=== PATIENT | female | born 1935 | race Caucasian/White ===

== ENCOUNTER 2018-04-16 15:51 | Inpatient (IN) | payer OTHER, MEDICARE ==
--- NOTE | 2018-04-16 16:16 | EDPHY ---
H & P Time Seen by Provider: 04/16/18 16:15 HPI/ROS: CHIEF COMPLAINT: Abnormal labs, high creatinine HISTORY OF PRESENT ILLNESS: Patient is scheduled to have port placement tomorrow morning by Dr. Tevin Alfredo for dialysis. Dr. Navin Heredia has been following her creatinine and was drawn in [place] today, and was told to come in because her creatinine is rising. Symptoms include nausea with vomiting yesterday, food not tasting good, increasing fatigue, having lost 15 lb in the last 6 weeks and decreased urination. Patient does not have palpitations or syncope. The no dysuria hematuria or fever. REVIEW OF SYSTEMS: Eye: no change in vision ENT: no sore throat Cardiac: no chest pain or syncope Pulmonary: no cough or SOB Abdomen: No diarrhea or abdominal pain Musculoskeletal: Triage note says back pain, the patient says it is minimal and ongoing, not acute Skin: no rash Neuro: no headache Constitutional: no fever : HPI A comprehensive 10 point review of systems is otherwise negative aside from elements mentioned in the history of present illness. PAST MEDICAL HISTORY: Includes hypertension, hypothyroid, GERD, hyperlipidemia , macular degeneration, chronic kidney disease, coronary disease with 2 stents. Social history: Currently nonsmoker, moved to [place] from [place] 2 months ago General Appearance: Alert and conversant, cooperative. Eyes: No scleral icterus. ENT, Mouth: Normal mucous membranes. Respiratory: Normal respiratory effort, breath sounds equal, lungs are clear to auscultation. No rales, saturation 93%. Cardiovascular: Regular rate and rhythm. Gastrointestinal: Abdomen is soft and non tender. Neurological: Alert, face symmetric, normal motor and sensory in extremities. Skin: Warm and dry, no rashes. Musculoskeletal: No peripheral edema. Psychiatric: Not agitated. Emergency Department course/MDM: Recheck labs to include potassium and creatinine. Admission to hospitalist service. She has a port scheduled by Dr. Alfredo tomorrow at 7:00 a.m. For dialysis. Her composite engineer recommends and requests admission hospitalist service, she will see her tonight. Smoking Status: Former smoker Constitutional: Initial Vital Signs Temperature (C) 36.7 C 04/16/18 16:04 Heart Rate 80 04/16/18 16:04 Respiratory Rate 16 04/16/18 16:04 Blood Pressure 149/60 H 04/16/18 16:04 O2 Sat (%) 93 04/16/18 16:04 O2 Delivery Mode Room Air Allergies/Adverse Reactions: sulfamethoxazole [From Bactrim] Allergy (Verified 04/15/18 14:38) trimethoprim [From Bactrim] Allergy (Verified 04/15/18 14:38) Home Medications: Medication Instructions Recorded Aspirin [Aspirin 325 mg (*)] 325 mg PO HS 04/16/18 C/E/Zn/Cu/OM3/DHA/EPA/LUT/ZEAX 1 each PO BID 04/16/18 [Preservision Areds 2 Softgel] Carvedilol [Coreg (*)] 25 mg PO BIDMEAL 04/16/18 Enalapril Maleate [Vasotec 20 MG 20 mg PO DAILY 04/16/18 (*)] Furosemide [Lasix 40 MG (*)] 40 mg PO DAILY 04/16/18 Levothyroxine [Synthroid 88 mcg 88 mcg PO DAILY06 04/16/18 (*)] Multivitamins [Multivitamin (*)] 1 each PO DAILY 04/16/18 Ranitidine HCl [Zantac] 300 mg PO HS 04/16/18 Simvastatin [Zocor] 20 mg PO HS 04/16/18 Sodium Bicarbonate [Na Bicarb] 650 mg PO DAILY 04/16/18 amLODIPine BESYLATE [Norvasc 5 mg 5 mg PO DAILY 04/16/18 (*)] Medical Decision Making Consult/Admit Bed Type: [place] [id number] admit hospitalistAlejandro [facility] Laboratory Results: Laboratory Results 04/16/18 16:45 04/16/18 16:45 04/16/18 04/16/18 16:45 16:45 WBC 4.49 10^3/uL 10^3/uL (3.80-9.50) RBC 2.40 10^6/uL L 10^6/uL (4.18-5.33) Hgb 7.6 g/dL L g/dL (12.6-16.3) Hct 23.0 % L % (38.0-47.0) MCV 95.8 fL fL (81.5-99.8) MCH 31.7 pg pg (27.9-34.1) MCHC 33.0 g/dL g/dL (32.4-36.7) RDW 14.6 % % (11.5-15.2) Plt Count 178 10^3/uL 10^3/uL (150-400) MPV 9.6 fL fL (8.7-11.7) Neut % (Auto) 74.5 % H % (39.3-74.2) Lymph % (Auto) 12.0 % L % (15.0-45.0) [place] % (Auto) 9.8 % % (4.5-13.0) Eos % (Auto) 2.9 % % (0.6-7.6) Baso % (Auto) 0.4 % % (0.3-1.7) Nucleat RBC Rel Count 0.0 % % (0.0-0.2) Absolute Neuts (auto) 3.35 10^3/uL 10^3/uL (1.70-6.50) Absolute Lymphs (auto) 0.54 10^3/uL L 10^3/uL (1.00-3.00) Absolute Monos (auto) 0.44 10^3/uL 10^3/uL (0.30-0.80) Absolute Eos (auto) 0.13 10^3/uL 10^3/uL (0.03-0.40) Absolute Basos (auto) 0.02 10^3/uL 10^3/uL (0.02-0.10) Absolute Nucleated RBC 0.00 10^3/uL 10^3/uL (0-0.01) Immature Gran % 0.4 % % (0.0-1.1) Immature Gran # 0.02 10^3/uL 10^3/uL (0.00-0.10) RBC/WBC/PLT Morphology TNP Platelet Estimate TNP Sodium 135 mEq/L mEq/L (135-145) Potassium 4.3 mEq/L mEq/L (3.5-5.2) Chloride 105 mEq/L mEq/L (97-110) Carbon Dioxide 15 mEq/l L mEq/l (22-31) Anion Gap 15 mEq/L H mEq/L (6-14) BUN 103 mg/dL H* mg/dL (7-23) Creatinine 6.1 mg/dL H mg/dL (0.6-1.0) Estimated GFR 7 Glucose 84 mg/dL mg/dL (70-100) Calcium 9.1 mg/dL mg/dL (8.5-10.4) Medications Given: Discontinued Medications Cefazolin Sodium/Dextrose (Ancef) 100 mls @ 200 mls/hr IV ONCALL ONE PRN Reason: Protocol Stop: 04/16/18 19:23 Last Admin: 04/16/18 19:26 Dose: 100 mls Departure - Departure Disposition: [facility] Acute Clinical Impression: Renal failure Qualifiers: Renal failure chronicity: acute on chronic Acute renal failure type: unspecified Chronic kidney disease stage: unspecified stage Qualified Code(s): N17.9 - Acute kidney failure, unspecified Condition: Good
[2018-04-16 17:12] LABS: PLATELET COUNT 178 10^3/uL (150-400)
[2018-04-16] MEDS ORDERED: ONDANSETRON DISINTEGRATING 4 MG TAB PO PRN (18:06)
[2018-04-16] MEDS ORDERED: ACETAMINOPHEN 325 MG TAB PO PRN (18:06)
[2018-04-16] MEDS ORDERED: ONDANSETRON 4 MG/2 ML VIAL IVP PRN (18:06)
--- NOTE | 2018-04-16 18:14 | PDGENHP ---
History and Physical - Chief Complaint Increased creatinine - History of Present Illness 82 y/o female with history of polycystic kidney disease/CKD presents in renal failure with elevated creatinine levels. She has been stable for years regarding her kidneys. She recently moved from [place] to [place] and followed up with Dr. Alfredo on 04/06/18 to discuss AV fistula creation seeing how her symptoms have acutely changed. Within the last 6 weeks, she has lost 15 lbs, doesn't have an appetite, increase in fatigue and decreased urination. She denies chest pains, dysuria, nausea, constipation. Dr. Navin Heredia has been following her creatinine and instructed the pt to come to the emergency room today d/t rising creatinine. Dr. Alfredo will place a port tomorrow morning for possible dialysis. Past Medical/Surgical History 1. Autosomal dominant polycystic kidney disease 2. CAD s/p 2x stent 3. CKD 4. COPD 5. Cystic disease of the liver 6. Hyperlipidemia 7. Hypertension 8. Hypothyroidism 9. Iron deficient anemia 10. Diabetes II 11. Bladder surgery 12. Hysterectomy 13. Cataracts Social 1. Moved from [place] to [place] 2 months ago 2. Lives in assisted living. 3. Denies tobacco or illicit drug use. Drinks less than 1 alcohol drink per month. Vital Signs 149/60 HR 80 Resp 16 36.7c 93% RA History Information - Allergies/Home Medication List Allergies/Adverse Reactions: sulfamethoxazole [From Bactrim] Allergy (Verified 04/15/18 14:38) trimethoprim [From Bactrim] Allergy (Verified 04/15/18 14:38) Home Medications: Aspirin [Aspirin 325 mg (*)] 325 mg PO HS 04/16/18 [Last Taken 04/15/18] C/E/Zn/Cu/OM3/DHA/EPA/LUT/ZEAX [Preservision Areds 2 Softgel] 1 each PO BID [Last Taken 04/16/18] Carvedilol [Coreg (*)] 25 mg PO BIDMEAL 04/16/18 [Last Taken 04/16/18] Enalapril Maleate [Vasotec 20 MG (*)] 20 mg PO DAILY 04/16/18 [Last Taken ] Furosemide [Lasix 40 MG (*)] 40 mg PO DAILY 04/16/18 [Last Taken 04/16/18] Levothyroxine [Synthroid 88 mcg (*)] 88 mcg PO DAILY06 04/16/18 [Last Taken ] Multivitamins [Multivitamin (*)] 1 each PO DAILY 04/16/18 [Last Taken 04/16/18] Ranitidine HCl [Zantac] 300 mg PO HS 04/16/18 [Last Taken 04/15/18] Simvastatin [Zocor] 20 mg PO HS 04/16/18 [Last Taken 04/15/18] Sodium Bicarbonate [Na Bicarb] 650 mg PO DAILY 04/16/18 [Last Taken 04/16/18] amLODIPine BESYLATE [Norvasc 5 mg (*)] 5 mg PO DAILY 04/16/18 [Last Taken ] I have personally reviewed and updated: family history, medical history, social history, surgical history Past Medical History: See HPI list - Surgical History Additional surgical history: See HPI list - Family History Additional family history: Brother and sister with kidney disease - Social History Smoking Status: Former smoker Alcohol Use: Rarely Drug Use: None Review of Systems Review of Systems: ROS: 10pt was reviewed & negative except for what was stated in HPI & below Constitutional: Reports: weakness, weight loss, other (Fatigue) EENMT: Reports: no symptoms Cardiac: Reports: no symptoms Respiratory: Reports: shortness of breath Gastrointestinal: Reports: vomitting, nausea Genitourinary: Reports: other (decreased urination) Muscolosketal: Reports: back pain (More so left side) Skin: Reports: no symptoms Neurological: Reports: no symptoms Hematologic/Lymphatic: Reports: no symptoms Immunologic/Allergy: Reports: other (See allergy list) Physical Exam Physical Exam: Lab data and imaging reviewed Temp Pulse Resp BP Pulse Ox 36.7 C 80 16 149/60 H 93 04/16/18 16:04 04/16/18 16:04 04/16/18 16:04 04/16/18 16:04 04/16/18 16:04 Constitutional: no apparent distress, appears nourished, not in pain Eyes: PERRL, anicteric sclera, EOMI Ears, Nose, Mouth, Throat: moist mucous membranes, hearing normal, ears appear normal, no oral mucosal ulcers Cardiovascular: regular rate and rhythym, no murmur, rub, or gallop, No edema Peripheral Pulses: 2+: dorsalis-pedis (R) (Radial 2+), dorsalis-pedis (L) ( Radial 2+) Respiratory: no respiratory distress, no rales or rhonchi, clear to auscultation Gastrointestinal: normoactive bowel sounds, soft, non-tender abdomen, no palpable masses Genitourinary: no bladder fullness, no bladder tenderness, other (No CVA tenderness) Skin: warm, normal color, no rashes or abrasions, no fluctuance, no induration, No mottled Musculoskeletal: full muscle strength, no muscle tenderness, normal joint ROM, no joint effusions Neurologic: AAOx3, sensation intact bilaterally, CN II-XII Intact Psychiatric: interacting appropriately, not anxious, not encephalopathic, thought process linear Lymph, Heme, Immunologic: no cervical LAD, no supraclavicular LAD Lab Data & Imaging Review 04/16/18 16:45 04/16/18 16:45 WBC 4.49 10^3/uL (3.80-9.50) 04/16/18 16:45 RBC 2.40 10^6/uL (4.18-5.33) L 04/16/18 16:45 Hgb 7.6 g/dL (12.6-16.3) L 04/16/18 16:45 Hct 23.0 % (38.0-47.0) L 04/16/18 16:45 MCV 95.8 fL (81.5-99.8) 04/16/18 16:45 MCH 31.7 pg (27.9-34.1) 04/16/18 16:45 MCHC 33.0 g/dL (32.4-36.7) 04/16/18 16:45 RDW 14.6 % (11.5-15.2) 04/16/18 16:45 Plt Count 178 10^3/uL (150-400) 04/16/18 16:45 MPV 9.6 fL (8.7-11.7) 04/16/18 16:45 Neut % (Auto) 74.5 % (39.3-74.2) H 04/16/18 16:45 Lymph % (Auto) 12.0 % (15.0-45.0) L 04/16/18 16:45 [place] % (Auto) 9.8 % (4.5-13.0) 04/16/18 16:45 Eos % (Auto) 2.9 % (0.6-7.6) 04/16/18 16:45 Baso % (Auto) 0.4 % (0.3-1.7) 04/16/18 16:45 Nucleat RBC Rel Count 0.0 % (0.0-0.2) 04/16/18 16:45 Absolute Neuts (auto) 3.35 10^3/uL (1.70-6.50) 04/16/18 16:45 Absolute Lymphs (auto) 0.54 10^3/uL (1.00-3.00) L 04/16/18 16:45 Absolute Monos (auto) 0.44 10^3/uL (0.30-0.80) 04/16/18 16:45 Absolute Eos (auto) 0.13 10^3/uL (0.03-0.40) 04/16/18 16:45 Absolute Basos (auto) 0.02 10^3/uL (0.02-0.10) 04/16/18 16:45 Absolute Nucleated RBC 0.00 10^3/uL (0-0.01) 04/16/18 16:45 Immature Gran % 0.4 % (0.0-1.1) 04/16/18 16:45 Immature Gran # 0.02 10^3/uL (0.00-0.10) 04/16/18 16:45 RBC/WBC/PLT Morphology TNP 04/16/18 16:45 Platelet Estimate TNP 04/16/18 16:45 Sodium 135 mEq/L (135-145) 04/16/18 16:45 Potassium 4.3 mEq/L (3.5-5.2) 04/16/18 16:45 Chloride 105 mEq/L (97-110) 04/16/18 16:45 Carbon Dioxide 15 mEq/l (22-31) L 04/16/18 16:45 Anion Gap 15 mEq/L (6-14) H 04/16/18 16:45 BUN 103 mg/dL (7-23) H* 04/16/18 16:45 Creatinine 6.1 mg/dL (0.6-1.0) H 04/16/18 16:45 Estimated GFR 7 04/16/18 16:45 Glucose 84 mg/dL (70-100) 04/16/18 16:45 Calcium 9.1 mg/dL (8.5-10.4) 04/16/18 16:45 Assessment & Plan Plan: 1. Renal failure -Avoid nephrotoxic medications -Nephrology consulted and aware -Surgery consulted and aware: Dr Alfredo to perform port placement tomorrow -Possible HD tomorrow and needed to be repeated at least 3 days in a row before outpatient placement per Dr. Frias -Cont tele monitoring -CBC/CMP tomorrow 2. Hypertension: stable -May continue amlodipine and carvedilol. Held MARK inhibitors and diuretics d/t renal failure. 3. Hypothyroid: may continue levothyroxine 4. GERD: may continue zantac 5. Metabolic acidosis secondary to renal failure -HD -Continue sodium bicarb for now Diet: Renal for now, NPO at midnight tonight VTE ppx: SCDs Code: Full Dispo: Admit to inpatient
[2018-04-16] MEDS ORDERED: ceFAZolin 2 GM/DEXTROSE 100 ML IV ONE (18:54)
--- NOTE | 2018-04-16 19:55 | PDCONSULT ---
Quarry Worker Note: Renal Consult Note CC: Nausea History of Present Illness: The patient is an 82 y/o F with a known h/o PCKD who recently moved to [place] this past fall with Stage IV/V CKD. She reports being stable for several years and was adamantly refusing dialysis until she began to feel unwell in late January and early February. She moved to [place] to be closer to her daughter and was having intermittent abdominal pain, N/V, and fatigue that she thought may be her gallbladder, however had full work-up with [facility] and likely has been uremic. She had scheduled an AVF placement as an outpatient with Dr. Alfredo tomorrow, however has been feeling so poorly over the last week, that she had requested tunneled catheter placement to start sooner. She admits to ASHLEIGH LE edema, poor po intake but no chest pain. Her daughter thinks she is having some confusion. Her goal is to get well enough to make it to her grandchild's wedding in the [place] in June. Today, she received lab results with significant worsening of her Cr and BUN >100 and agreed to come to the ED for admission to initiate dialysis. In addition, she has been undergoing chronic iron/darbe infusions for anemia for the past year or more. Past Medical/Surgical History 1. Autosomal dominant polycystic kidney disease 2. CAD s/p 2x stent 3. CKD 4. COPD 5. Cystic disease of the liver 6. Hyperlipidemia 7. Hypertension 8. Hypothyroidism 9. Iron deficient anemia 10. Diabetes II 11. Bladder surgery 12. Hysterectomy 13. Cataracts Social 1. Moved from [place] to [place] 2 months ago 2. Lives in assisted living. 3. Denies tobacco or illicit drug use. Drinks less than 1 alcohol drink per month. 4. Former smoker. Allergies/Home Medication List Allergies/Adverse Reactions: sulfamethoxazole [From Bactrim] Allergy (Verified 04/15/18 14:38) trimethoprim [From Bactrim] Allergy (Verified 04/15/18 14:38) Home Medications: Amlodipine Besylate 04/16/18 [Last Taken Unknown] Aspirin 325 mg (*) 04/16/18 [Last Taken Unknown] Carvedilol 04/16/18 [Last Taken Unknown] Enalapril Maleate 04/16/18 [Last Taken Unknown] Lasix 04/16/18 [Last Taken Unknown] Levothyroxine 04/16/18 [Last Taken Unknown] Multivitamin 04/16/18 [Last Taken Unknown] Omeprazole 04/16/18 [Last Taken Unknown] Ranitidine HCl 04/16/18 [Last Taken Unknown] Simvastatin 04/16/18 [Last Taken Unknown] Review of Systems Review of Systems: Negative except as per HPI. Physical Exam Temp Pulse Resp BP Pulse Ox 36.6 C 86 26 H 139/77 H 95 04/16/18 19:43 04/16/18 19:43 04/16/18 19:43 04/16/18 19:43 04/16/18 19:43 Physical Exam: GEN: A+Ox3, no distress HEENT: MMM, no thyromegaly CV: RRR, flow murmur LUNGS: CTA b/l, no wheezing ABD: Soft, NT, ND, +BS EXT: Trace edema NEURO: Non-focal Labs: WBC 4.49 10^3/uL (3.80-9.50) 04/16/18 16:45 RBC 2.40 10^6/uL (4.18-5.33) L 04/16/18 16:45 Hgb 7.6 g/dL (12.6-16.3) L 04/16/18 16:45 Hct 23.0 % (38.0-47.0) L 04/16/18 16:45 MCV 95.8 fL (81.5-99.8) 04/16/18 16:45 MCH 31.7 pg (27.9-34.1) 04/16/18 16:45 MCHC 33.0 g/dL (32.4-36.7) 04/16/18 16:45 RDW 14.6 % (11.5-15.2) 04/16/18 16:45 Plt Count 178 10^3/uL (150-400) 04/16/18 16:45 MPV 9.6 fL (8.7-11.7) 04/16/18 16:45 Neut % (Auto) 74.5 % (39.3-74.2) H 04/16/18 16:45 Lymph % (Auto) 12.0 % (15.0-45.0) L 04/16/18 16:45 [place] % (Auto) 9.8 % (4.5-13.0) 04/16/18 16:45 Eos % (Auto) 2.9 % (0.6-7.6) 04/16/18 16:45 Baso % (Auto) 0.4 % (0.3-1.7) 04/16/18 16:45 Nucleat RBC Rel Count 0.0 % (0.0-0.2) 04/16/18 16:45 Absolute Neuts (auto) 3.35 10^3/uL (1.70-6.50) 04/16/18 16:45 Absolute Lymphs (auto) 0.54 10^3/uL (1.00-3.00) L 04/16/18 16:45 Absolute Monos (auto) 0.44 10^3/uL (0.30-0.80) 04/16/18 16:45 Absolute Eos (auto) 0.13 10^3/uL (0.03-0.40) 04/16/18 16:45 Absolute Basos (auto) 0.02 10^3/uL (0.02-0.10) 04/16/18 16:45 Absolute Nucleated RBC 0.00 10^3/uL (0-0.01) 04/16/18 16:45 Immature Gran % 0.4 % (0.0-1.1) 04/16/18 16:45 Immature Gran # 0.02 10^3/uL (0.00-0.10) 04/16/18 16:45 RBC/WBC/PLT Morphology TNP 04/16/18 16:45 Platelet Estimate TNP 04/16/18 16:45 Sodium 135 mEq/L (135-145) 04/16/18 16:45 Potassium 4.3 mEq/L (3.5-5.2) 04/16/18 16:45 Chloride 105 mEq/L (97-110) 04/16/18 16:45 Carbon Dioxide 15 mEq/l (22-31) L 04/16/18 16:45 Anion Gap 15 mEq/L (6-14) H 04/16/18 16:45 BUN 103 mg/dL (7-23) H* 04/16/18 16:45 Creatinine 6.1 mg/dL (0.6-1.0) H 04/16/18 16:45 Estimated GFR 7 04/16/18 16:45 Glucose 84 mg/dL (70-100) 04/16/18 16:45 Calcium 9.1 mg/dL (8.5-10.4) 04/16/18 16:45 Assessment/Plan: The patient is an 82 y/o F with a known h/o CKD Stage V 2/2 to PCKD as well as DM, HTN who presents with symptoms of uremia ready to initiate dialysis. ESRD -obtain TDC and AVF per Dr. Alfredo tomorrow -will do HD x 3 days in a row prior to outpatient placement -will use mannitol to prevent ALESHA HTN/vol -BP's at goal -continue home meds -will UF with HD Acidosis -on sodium bicarb, continue for now -will modulate with HD BMD -supposed to be taking TUMS binder with meals -may start sevelamer tid -renal diet Anemia -continue EPO with HD -has had recent GI work-up -transfuse for <7g/dL Consult appreciated, will continue to follow. Please contact if ?'s. #. Navin Frias, [facility]
--- NOTE | 2018-04-16 20:08 | HOSPPROG ---
Hospitalist Progress Note Assessment/Plan: #Acute on chronic HD -Surgery to see in a.m. -HD tomorrow, will need to be repeated -nephrology #Anemia -transfuse PRN #HTN #Uremia #Hx of CAD Pt seen and examined. Agree with ROLL REPAIRER's H&P per her note. Pt will have port placed tomorrow with dialysis following. No e/o of hyperkalemia Subjective: feels tired. no cp or sob. no n/v Objective: Vital Signs Temp Pulse Resp BP Pulse Ox 36.6 C 86 26 H 139/77 H 95 04/16/18 19:43 04/16/18 19:43 04/16/18 19:43 04/16/18 19:43 04/16/18 19:43 04/15/18 04/16/18 04/17/18 05:59 05:59 05:59 Output Total 80 Balance -80 - Physical Exam Constitutional: no apparent distress Eyes: PERRL Ears, Nose, Mouth, Throat: moist mucous membranes, hearing normal Cardiovascular: edema (trace) Gastrointestinal: normoactive bowel sounds Skin: warm Neurologic: AAOx3 Psychiatric: interacting appropriately, not anxious, not encephalopathic ICD10 Worksheet Patient Problems: Problems Problem Status Onset Renal failure Acute
[2018-04-16] MEDS ORDERED: Ranitidine Hcl [Zantac] 300 MG PO SCH (21:00)
[2018-04-16] MEDS: RANITIDINE HCL 150 MG/10 ML UDCUP PO SCH (22:03)
[2018-04-17 04:48] LABS: PLATELET COUNT 153 10^3/uL (150-400)
[2018-04-17] MEDS: LEVOTHYROXINE 88 MCG TAB PO SCH (05:22)
--- NOTE | 2018-04-17 07:12 | POSTANESTH ---
Post Anesthetic Evaluation Cardiovascular Status: Normal, Stable Respiratory Status: Normal, Stable Level of Consciousness/Mental Status: Can Participate in Eval, Mildly Sleepy, Arousable Pain Control: Adequate, Prn Tx Ordered Nausea/Vomiting Control: Adequate, Prn Tx Ordered Complications Possibly Related to Anesthesia: None Noted
[2018-04-17] MEDS ORDERED: CARVEDILOL 25 MG TAB PO SCH (08:00)
[2018-04-17] MEDS ORDERED: THROMBIN (BOVINE) 5,000 UNIT VIAL TP ONE (08:01)
[2018-04-17] MEDS ORDERED: PROTAMINE SULFATE 50 MG/5 ML VIAL IVP ONE (08:01)
[2018-04-17] MEDS ORDERED: BUPIVACAINE 0.5% 30 ML SDV ONE ×2 (08:02→08:04)
[2018-04-17] MEDS ORDERED: HEPARIN 50,000 UNIT/10 ML VIAL ONE ×2 (08:02→22:30)
[2018-04-17] MEDS ORDERED: THROMBIN (BOVINE) 20,000 UNIT SPRAY TP ONE (08:02)
[2018-04-17] MEDS ORDERED: NS 1,000 ML IV ONE (08:11)
[2018-04-17] MEDS ORDERED: ceFAZolin 2 GM/DEXTROSE 100 ML IV ONE (08:30)
[2018-04-17] MEDS ORDERED: DEXAMETHASONE 4 MG/ML VIAL ONE (08:37)
[2018-04-17] MEDS ORDERED: LIDOCAINE 2% 5 ML SDV ONE (08:37)
[2018-04-17] MEDS ORDERED: fentaNYL 100 MCG/2 ML INJ ONE (08:37)
[2018-04-17] MEDS ORDERED: PROPOFOL 200 MG/20 ML VIAL ONE (08:37)
[2018-04-17] MEDS ORDERED: CISATRACURIUM BESYLATE 20 MG/10 ML VIAL IV ONE (08:38)
--- NOTE | 2018-04-17 10:05 | SOAPPROG ---
SOAP Progress Note Assessment/Plan: Assessment: 82-YEAR-OLD FEMALE WITH INCREASING AZOTEMIA BUT POTASSIUM IS OKAY SURGICAL RISKS AND OPTIONS FULLY DISCUSSED AND SHE WISHED TO PROCEED HEENT NONICTERIC WITHOUT BRUITS CHEST CLEAR COR REGULAR RHYTHM ABDOMEN SOFT EXTREMITIES FULL PULSES FULL RANGE OF MOTION Plan: IJ PALINDROME CATHETER/LEFT ARM AV FISTULA 04/17/18 10:04 Objective: Vital Signs Temp Pulse Resp BP Pulse Ox 36.6 C 88 16 133/63 H 93 04/17/18 08:19 04/17/18 08:19 04/17/18 08:19 04/17/18 08:19 04/17/18 08:19 Laboratory Results 04/17/18 04:33 04/17/18 04:33 04/16/18 04/17/18 04/18/18 05:59 05:59 05:59 Intake Total 100 Output Total 955 200 Balance -855 -200 ICD10 Worksheet Patient Problems: Problems Problem Status Onset Renal failure Acute
--- NOTE | 2018-04-17 10:16 | PDMN ---
Medical Necessity Medical necessity: [facility] 82 yo w/ hx polycyctic kidney disease/CKD in acute renal failure w/ elevated creat 6.1, metabolic acidosis. Nephrology consulted, Surgery consult for port placement. Start hemodialysis after port placement. Meets [facility] IP criteria for ARF w/ creat>4, metabolic abnormality and acute dialysis needs. Hx as above + CAD s/p stentx2, COPD, cystic disease of liver, HTN, HLD, DM, iron deficient anemia
--- NOTE | 2018-04-17 12:06 | PDANEPAE ---
ANE History of Present Illness 82 yo female with chronic kidney disease with a subacute worsening over the past 3 months, needing dialysis. ANE Past Medical History - Cardiovascular History Hx Hypertension: Yes Hx Arrhythmias: No Hx Chest Pain: No Hx Coronary Artery / Peripheral Vascular Disease: Yes Hx CHF / Valvular Disease: No Hx Palpitations: No Cardiovascular History Comment: stents x 2,12 yrs ago. Hx [place]. 01/20/18 - negative pharmacologic stress test performed in [place] - Pulmonary History Hx COPD: No Hx Asthma/Reactive Airway Disease: No Hx Recent Upper Respiratory Infection: No Hx Oxygen in Use at Home: No Hx Sleep Apnea: No Sleep Apnea Screening Result - Last Documented: Negative Pulmonary History Comment: [facility] TRIGG[facility] ONLY - Neurologic History Hx Cerebrovascular Accident: No Hx Seizures: No Hx Dementia: No - Endocrine History Hx Diabetes: Yes Hypothyroid: No Hyperthyroid: No Obesity: no Endocrine History Comment: TYPE 2 DM - pt denies diabetes - Renal History Hx Renal Disorders: Yes Renal History Comment: CKD - Liver History Hx Hepatic Disorders: Yes Hepatic History Comment: CYSTIC LIVER DISEASE - Neurological & Psychiatric Hx Hx Neurological and Psychiatric Disorders: No - Cancer History Hx Cancer: No - Congenital Disorder History Hx Congenital Disorders: No - GI History GERD: moderate Hx Gastrointestinal Disorders: Yes - Other Health History Other Health History: NONE - Chronic Pain History Chronic Pain: No - Surgical History Prior Surgeries: none in last 5 yrs. cataract surgery. bladder repair 2014 ANE Review of Systems Review of Systems: - Systems Constitutional: Reports: malaise (tired) EENMT: Reports: no symptoms Cardiac: Reports: no symptoms Respiratory: Reports: no symptoms ANE Patient History - Allergies Allergies/Adverse Reactions: sulfamethoxazole [From Bactrim] Allergy (Verified 04/15/18 14:38) trimethoprim [From Bactrim] Allergy (Verified 04/15/18 14:38) - Home Medications Home Medications: Aspirin [Aspirin 325 mg (*)] 325 mg PO HS 04/16/18 [Last Taken 04/15/18] C/E/Zn/Cu/OM3/DHA/EPA/LUT/ZEAX [Preservision Areds 2 Softgel] 1 each PO BID [Last Taken 04/16/18] Carvedilol [Coreg (*)] 25 mg PO BIDMEAL 04/16/18 [Last Taken 04/16/18] Enalapril Maleate [Vasotec 20 MG (*)] 20 mg PO DAILY 04/16/18 [Last Taken ] Furosemide [Lasix 40 MG (*)] 40 mg PO DAILY 04/16/18 [Last Taken 04/16/18] Levothyroxine [Synthroid 88 mcg (*)] 88 mcg PO DAILY06 04/16/18 [Last Taken ] Multivitamins [Multivitamin (*)] 1 each PO DAILY 04/16/18 [Last Taken 04/16/18] Ranitidine HCl [Zantac] 300 mg PO HS 04/16/18 [Last Taken 04/15/18] Simvastatin [Zocor] 20 mg PO HS 04/16/18 [Last Taken 04/15/18] Sodium Bicarbonate [Na Bicarb] 650 mg PO DAILY 04/16/18 [Last Taken 04/16/18] amLODIPine BESYLATE [Norvasc 5 mg (*)] 5 mg PO DAILY 04/16/18 [Last Taken ] - NPO status NPO Since - Liquids (Date): 04/17/18 NPO Since - Liquids (Time): 00:00 NPO Since - Solids (Date): 04/17/18 NPO Since - Solids (Time): 00:00 - Anes Hx Anes Hx: no prior problems - Smoking Hx Smoking Status: Former smoker - Alcohol Use Alcohol Use: Rarely - Family Anes Hx Family Anes Hx: neg - N/A Family Hx Anesthesia Complications: none ANE Labs/Vital Signs - Labs Result Diagrams: 04/17/18 04:33 04/17/18 04:33 - Vital Signs Blood Pressure: 133/63 Heart Rate: 88 Respiratory Rate: 16 O2 Sat (%): 93 Height: 154.94 cm Weight: 63.503 kg ANE Physical Exam - Airway Neck exam: decreased ROM Mallampati Score: Class 3 Mouth exam: normal dental/mouth exam - Pulmonary Pulmonary: clear to auscultation - Cardiovascular Cardiovascular: regular rate and rhythym - ASA Status ASA Status: III ANE Anesthesia Plan Anesthesia Plan: GA w LMA ([place] LMA)
[2018-04-17] MEDS ORDERED: PHENYLEPHRINE HCL 100 MCG/ML SYR ONE (12:40)
[2018-04-17] MEDS ORDERED: BACITRACIN ZINC 0.5 OZ OINTTUBE TP ONE (13:31)
[2018-04-17 13:48] LABS: HEPATITIS B SURFACE ANTIGEN NEGATIVE (NEGATIVE)
[2018-04-17] MEDS ORDERED: ePHEDrine SULFATE 25 MG/5 ML SYR ONE (14:14)
[2018-04-17] MEDS ORDERED: fentaNYL 100 MCG/2 ML INJ IVP PRN (14:43)
[2018-04-17] MEDS ORDERED: PROMETHAZINE HCL 25 MG/ML INJ IVP PRN (14:43)
[2018-04-17] MEDS ORDERED: NALOXONE HCL 0.4 MG/ML INJ IVP PRN (14:43)
[2018-04-17] MEDS ORDERED: ALBUTEROL 3 ML DEYVIAL IH PRN (14:43)
[2018-04-17] MEDS ORDERED: oxyCODONE IR 5 MG TAB PO PRN (14:43)
[2018-04-17] MEDS ORDERED: ONDANSETRON 4 MG/2 ML VIAL ONE (14:45)
--- NOTE | 2018-04-17 14:52 | HOSPPROG ---
Hospitalist Progress Note Assessment/Plan: The patient is a 82-year-old female with PMH CKD who was admitted per the recommendation of her financial reporting advisor to initiate hemodialysis for new onset ESRD. This patient is new to me. Reviewed patient's chart/records for this visit. 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 Starting tonight. Nephrology recs appreciated - discussed w / Dr. Davis. -On bicarb. -Surgery today - for AVF, tunneled cath. -Resume home meds. -Watch for hypoglycemia, hypotension, etc. -Check AM labs. VTE prophylaxis: Hold off on VTE ppx today w/ surgery/HD. Code Status: Full code. Status: inpt for > 2 midnight stay. Disposition: med surg ____ SUBJECTIVE: OBJECTIVE: Physical Exam: General: The patient is a female who is alert and in no acute distress. HEENT: normocephalic, extraocular movements intact, conjunctivae clear. Mucous membranes moist or dry. Neck: trachea midline, no visible masses. Resp: unlabore. Abd: soft and nondistended. Musculoskeletal: Normal muscle tone/bulk. Neuro: cranial nerves II -XII grossly intact. Intact gross motor and sensory function. Psych: appropriate mood and appropriate affect. Skin: No pallor. No petechiae. Heme/lymph: No peripheral edema at bilateral lower legs. Labs/Imaging/Other Tests: Personally reviewed/interpreted. CXR 1 view- Impression: 1. New well-positioned tunneled right IJ dialysis catheter. 2. No pneumothorax or edema. 3. Chronic mild bronchitis. Objective: Vital Signs Temp Pulse Resp BP Pulse Ox 36.6 C 88 16 133/63 H 93 04/17/18 08:19 04/17/18 12:06 04/17/18 12:06 04/17/18 12:06 04/17/18 12:06 Laboratory Results 04/17/18 04:33 04/17/18 04:33 04/16/18 04/17/18 04/18/18 05:59 05:59 05:59 Intake Total 100 Output Total 955 200 Balance -855 -200 - Time Spent With Patient Time Spent with Patient: greater than 35 minutes Time Spent with Patient: Greater than 35 minutes spent on this patients care, greater than 50% of time spent counseling, educating, and coordinating care regarding the above mentioned plan. ICD10 Worksheet Patient Problems: Problems Problem Status Onset Renal failure Acute
[2018-04-17] MEDS ORDERED: HYDROCODONE/APAP 5/325 TAB PO PRN (14:58)
[2018-04-17] MEDS ORDERED: HYDROmorphONE/DILAUDID 1 MG/ML INJ IVP PRN (14:58)
--- NOTE | 2018-04-17 15:00 | POSTOPPROG ---
Post Op Note Date of Operation: 04/17/18 Surgeon: Tevin Alfredo Field Staff Manager: charu anand Anesthesiologist: Dr White Anesthesia: GET(General Endotracheal) Pre-op Diagnosis: need for access for dialysis Post-op Diagnosis: same Indication: see above Procedure: neck cath, left UE AVF Inf/Abcess present in the surg proc area at time of surgery?: No EBL: Minimal
--- NOTE | 2018-04-17 16:32 | ASMTCMCOM ---
CM Note CM Note Notes: Pt is a 82 yo F presenting with Renal Failure. Started on dialysis today. Pt is a , has daughter in the area. CM to follow. Plan: TBD Date Signed: 04/17/2018 04:32 PM Electronically Signed By:GILLIAN King
[2018-04-17] MEDS: SODIUM BICARBONATE 650 MG TAB PO SCH (17:07)
[2018-04-17] MEDS: amLODIPine BESYLATE 5 MG TAB PO SCH (17:07)
--- NOTE | 2018-04-17 17:24 | SOAPPROG ---
SOAP Progress Note Assessment/Plan: Assessment: 82 y/o F with a known h/o PCKD who recently moved to [place] this past fall with Stage IV/V CKD, CAD, COPD, HLD, HTN, DM, and macular degeneration admitted with uremic symptoms for initiation of dialysis. # ESRD- will now be declared ESRD --1st HD session on 04/17 evening 1.5hrs (200BF/300DF) --2nd HD session 04/18 or 04/19 based on scheduling --3rd HD session on 04/20 --Will need to work on outpatient dialysis placement starting on 04/20 (patient was in OR until late on 04/17). Patient hopes to dialyze at [facility] --Start dialysis vitamin --Tunneled HD catheter and LUE AVF placed by Dr. Alfredo on 04/17 # Anemia- --Will check iron studies with AM labs # Hypertension- BP running lower than normal after OR even without meds --Will add hold parameters to home BP meds # Metabolic acidosis-2/2 ESRD --HD on higher bicarb bath # Hyperkalemia- K at goal # CKD-MBD --Check phos with AM labs >30min spent on the care of this patient with >50% of time spent on counseling and coordination of care Discussed with Dr. Jade Subjective: Patient doesn't feel terrible. Surgery went well. Continues to have malaise. Nausea this morning, comes and goes. No metallic taste. Does have itching all over. Sleeping ok. No shortness of breath. Objective: Vital Signs Temp Pulse Resp BP Pulse Ox 36.5 C 77 24 H 137/53 H 98 04/17/18 16:17 04/17/18 16:17 04/17/18 16:17 04/17/18 16:17 04/17/18 16:17 Laboratory Results 04/17/18 04:33 04/17/18 04:33 04/16/18 04/17/18 04/18/18 05:59 05:59 05:59 Intake Total 100 450 Output Total 955 230 Balance -855 220 General- awake, alert, well-appearing, NAD Eyes- anicteric sclera, no conjunctival injection HEENT- MMM, no gross oral lesions Neck- RIJ tunneled dialysis catheter in place Pulm- CTAB, no wheezes or rales, breathing comfortably on RA CV- NRRR, no g/m/r, no LE edema Abd- soft, non-tender, non-distended, +BS Extrem- new LUE AVF with good bruit and thrill Psych- pleasant, answers questions appropriately ICD10 Worksheet Patient Problems: Problems Problem Status Onset Renal failure Acute
[2018-04-17] MEDS: CARVEDILOL 25 MG TAB PO SCH (21:52)
[2018-04-17] MEDS: ATORVASTATIN CALCIUM 10 MG TAB PO SCH (21:52)
[2018-04-17] MEDS: PRESERVISION AREDS2 FORMULA EYE VIT 1 EACH PO SCH (21:52)
[2018-04-17] MEDS: ASPIRIN 325 MG TAB PO SCH (21:53)
[2018-04-17] MEDS: RANITIDINE HCL 150 MG/10 ML UDCUP PO SCH (22:22)
[2018-04-18] MEDS: LEVOTHYROXINE 88 MCG TAB PO SCH (05:19)
[2018-04-18 05:37] LABS: PLATELET COUNT 123 10^3/uL (150-400)
[2018-04-18] MEDS: ENALAPRIL MALEATE 20 MG TAB PO SCH (08:24)
[2018-04-18] MEDS: SODIUM BICARBONATE 650 MG TAB PO SCH (08:24)
[2018-04-18] MEDS: NEPHROVITE FOLIC ACID/VIT B&C 1 TAB PO SCH (08:25)
[2018-04-18] MEDS: CARVEDILOL 25 MG TAB PO SCH ×2 (08:25→18:13)
[2018-04-18] MEDS: PRESERVISION AREDS2 FORMULA EYE VIT 1 EACH PO SCH ×2 (08:26→20:14)
[2018-04-18] MEDS: amLODIPine BESYLATE 5 MG TAB PO SCH (08:26)
[2018-04-18] MEDS ORDERED: MULTIVITAMINS 1 EACH TAB PO SCH (09:00)
--- NOTE | 2018-04-18 10:28 | SOAPPROG ---
SOAP Progress Note Assessment/Plan: Assessment: s/p AVF and neck catheter doing well check for thrill daily F/U dr. ross in 2 weeks Will be on standby S: Feeling well O: Neck cath without signs of infection ecchymosis on anticub fossa left. Good thrill. Incision cdi Sitting on edge of bed, appears comfortable Plan: 04/18/18 10:27 04/18/18 12:13 Objective: Vital Signs Temp Pulse Resp BP Pulse Ox 36.6 C 93 16 138/64 H 90 L 04/18/18 07:41 04/18/18 08:25 04/18/18 07:41 04/18/18 08:26 04/18/18 07:41 Laboratory Results 04/18/18 05:18 04/18/18 05:18 04/17/18 04/18/18 04/19/18 05:59 05:59 05:59 Intake Total 100 1450 Output Total 955 631 Balance -855 819 ICD10 Worksheet Patient Problems: Problems Problem Status Onset Renal failure Acute
--- NOTE | 2018-04-18 11:30 | HOSPPROG ---
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 1. ESRD: New diagnosis. Due to PCKD. Tunneled dialysis line and LUE AV fistula placed by Dr Alfredo 04/17 - s/p 1st round HD 04/17 - due for 2nd session either today or tomorrow per renal - plan for 3rd session 04/20 - CM working on obtaining outpatient chair 2. Anemia: H/H down-trending, likely d/t recent surgery. Chronically more consistent with renal disease, not Fe deficient - type and screen - will discuss transfusion vs EPO with renal 3. Thrombocytopenia: Down slightly. Likely some consumption. Monitor daily. 4. Hypertension: BP ok, continue current meds. 5. Metabolic acidosis: 2/2 renal disease. Improved with HD. Continue bicarb. 6. Hypothyroidism: Continue LT4 replacement 7. HLD: On statin 8. COPD: No exacerbation, not on inhalers at home 9. Cystic liver disease VTE ppx: Diet: renal Code: full Dispo: remain inpatient for HD, close monitoring of labs, ADD 04/20 or 04/21 Subjective: Overall feeling better. Got short fun of HD (1.5hrs) last night. This was her first session. No dizziness, chest pain, nausea, dyspnea. Objective: Vital Signs Temp Pulse Resp BP Pulse Ox 36.6 C 93 16 138/64 H 90 L 04/18/18 07:41 04/18/18 08:25 04/18/18 07:41 04/18/18 08:26 04/18/18 07:41 Laboratory Results 04/18/18 05:18 04/18/18 05:18 04/17/18 04/18/18 04/19/18 05:59 05:59 05:59 Intake Total 100 1450 Output Total 955 631 Balance -855 819 - Physical Exam Constitutional: no apparent distress, appears nourished, not in pain Eyes: PERRL, anicteric sclera, EOMI Ears, Nose, Mouth, Throat: moist mucous membranes, hearing normal, ears appear normal, no oral mucosal ulcers Cardiovascular: regular rate and rhythym, no murmur, rub, or gallop, other (LUE AV fistula site c/d/i, no thrill), No edema Respiratory: no respiratory distress, no rales or rhonchi, clear to auscultation Gastrointestinal: normoactive bowel sounds, soft, non-tender abdomen, no palpable masses Genitourinary: no bladder fullness, no bladder tenderness, no renal bruits Skin: other (R subclavian line c/d/i) Musculoskeletal: full muscle strength, no muscle tenderness, normal joint ROM Neurologic: AAOx3, sensation intact bilaterally Psychiatric: interacting appropriately, not anxious, not encephalopathic, thought process linear ICD10 Worksheet Patient Problems: Problems Problem Status Onset Renal failure Acute
[2018-04-18] MEDS: IPRATROPIUM/ALBUTEROL 3 ML DEYVIAL IH PRN ×2 (13:43→19:49)
[2018-04-18] MEDS: GUAIFENESIN/DM 10 ML UDCUP PO PRN (14:17)
[2018-04-18] MEDS ORDERED: HEPARIN 50,000 UNIT/10 ML VIAL ONE (19:07)
[2018-04-18] MEDS: ATORVASTATIN CALCIUM 10 MG TAB PO SCH (20:13)
[2018-04-18] MEDS: ASPIRIN 325 MG TAB PO SCH (20:13)
[2018-04-18] MEDS: RANITIDINE HCL 150 MG/10 ML UDCUP PO SCH (20:14)
--- NOTE | 2018-04-18 22:27 | SOAPPROG ---
SOAP Progress Note Assessment/Plan: Assessment: 82 y/o F with a known h/o PCKD who recently moved to [place] this past fall with Stage IV/V CKD, CAD, COPD, HLD, HTN, DM, and macular degeneration admitted with uremic symptoms for initiation of dialysis. # ESRD- will now be declared ESRD --1st HD session on 04/17 evening 1.5hrs (200BF/300DF) --2nd HD session 04/18 --3rd HD session on 04/19, will give 1un PRBC with HD on 04/19 --Will need to work on outpatient dialysis placement starting on 04/20 (patient was in OR until late on 04/17). Patient hopes to dialyze at [facility] --dialysis vitamin --Tunneled HD catheter and LUE AVF placed by Dr. Alfredo on 04/17 # Anemia- --iron sat below goal at 17% *Plan for transfusion with HD on 04/19 given Hgb of 6.5 *Will plan to recheck iron sat after transfusion, might need IVF iron as well to make sure iron stores are up before starting Epo # Hypertension- ok on current meds, continue # Metabolic acidosis-2/2 ESRD, improved with initiation of HD and dialysis on higher bicarb bath *D/c'ed sodium bicarb tablets # Hyperkalemia- K at goal # CKD-MBD --Phos 5.6 on 04/18, above goal but just starting HD --CTM for now but will likely need phos binder in the future Subjective: Feeling much better since starting dialysis. Has tolerated first 2 treatments well without issues. Does report some cough and chills today. Objective: Vital Signs Temp Pulse Resp BP Pulse Ox 36.5 C 84 16 142/60 H 93 04/18/18 20:00 04/18/18 20:00 04/18/18 20:00 04/18/18 20:00 04/18/18 20:00 Laboratory Results 04/18/18 05:18 04/18/18 05:18 04/17/18 04/18/18 04/19/18 05:59 05:59 05:59 Intake Total 100 1450 2000 Output Total 955 631 300 Balance -984 506 1335 General- awake, alert, well-appearing, NAD Eyes- anicteric sclera, no conjunctival injection HEENT- MMM, no gross oral lesions Neck- RIJ tunneled dialysis catheter in place Pulm- CTAB, no wheezes or rales, breathing comfortably on RA CV- NRRR, no g/m/r, no LE edema Abd- soft, non-tender, non-distended, +BS Extrem- new LUE AVF with good bruit and thrill Psych- pleasant, answers questions appropriately ICD10 Worksheet Patient Problems: Problems Problem Status Onset Renal failure Acute
[2018-04-19 04:59] LABS: PLATELET COUNT 112 10^3/uL (150-400)
[2018-04-19] MEDS: LEVOTHYROXINE 88 MCG TAB PO SCH (05:49)
[2018-04-19] MEDS: PRESERVISION AREDS2 FORMULA EYE VIT 1 EACH PO SCH ×2 (07:38→19:31)
[2018-04-19] MEDS: NEPHROVITE FOLIC ACID/VIT B&C 1 TAB PO SCH (07:38)
[2018-04-19] MEDS: ENALAPRIL MALEATE 20 MG TAB PO SCH (07:38)
[2018-04-19] MEDS: amLODIPine BESYLATE 5 MG TAB PO SCH (07:38)
[2018-04-19] MEDS: CARVEDILOL 25 MG TAB PO SCH ×2 (07:38→18:05)
[2018-04-19] MEDS: IPRATROPIUM/ALBUTEROL 3 ML DEYVIAL IH PRN (11:36)
[2018-04-19] MEDS ORDERED: HEPARIN 50,000 UNIT/10 ML VIAL ONE (13:47)
--- NOTE | 2018-04-19 15:52 | HOSPPROG ---
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 1. ESRD: New diagnosis. Due to PCKD. Tunneled dialysis line and LUE AV fistula placed by Dr Alfredo 04/17 - s/p 1st round HD 04/17, 2nd round today 04/19 - plan for 3rd session 04/20 - CM working on obtaining outpatient chair 2. Anemia: H/H down-trending, likely d/t recent surgery. Chronically more consistent with renal disease - s/p 1u PRBC with HD today - renal recs rechecking Fe sat after transfusion to determine need for IV iron prior to starting EPO 3. Cough, dyspnea: Not clinically in exacerbation of COPD. - trial nebs, mucinex, tesslon hyun 4. Thrombocytopenia: Stable. Likely some consumption. Monitor daily. 5. Hypertension: BP ok, continue current meds. 6. Metabolic acidosis: 2/2 renal disease. Improved with HD. Renal discontinued bicarb. 7. Hypothyroidism: Continue LT4 replacement 8. HLD: On statin 9. COPD: No exacerbation, not on inhalers at home 10. Cystic liver disease VTE ppx: SCDs with drop in h/h Diet: renal Code: full Dispo: remain inpatient for HD, close monitoring of labs, ADD 04/20 Subjective: Doing well, tolerating HD without issues. Some neck spasm/pain that' s been going on prior to HD. Some cough. Objective: Vital Signs Temp Pulse Resp BP Pulse Ox 36.9 C 92 16 157/58 H 98 04/19/18 12:00 04/19/18 12:00 04/19/18 12:00 04/19/18 12:00 04/19/18 12:00 Laboratory Results 04/19/18 04:08 04/19/18 04:08 04/18/18 04/19/18 04/20/18 05:59 05:59 05:59 Intake Total 1450 2200 Output Total 631 300 475 Balance 819 1900 -475 - Physical Exam Constitutional: no apparent distress, appears nourished, not in pain Eyes: PERRL, anicteric sclera, EOMI Ears, Nose, Mouth, Throat: moist mucous membranes, hearing normal, ears appear normal, no oral mucosal ulcers Cardiovascular: regular rate and rhythym, no murmur, rub, or gallop, No edema Respiratory: no respiratory distress, no rales or rhonchi, clear to auscultation Gastrointestinal: normoactive bowel sounds, soft, non-tender abdomen, no palpable masses Genitourinary: no bladder fullness, no bladder tenderness, no renal bruits Skin: other (LUE AV fistula healing well, R subclavian line c/d/i) Musculoskeletal: full muscle strength, no muscle tenderness, normal joint ROM Neurologic: AAOx3, sensation intact bilaterally Psychiatric: interacting appropriately, not anxious, not encephalopathic, thought process linear ICD10 Worksheet Patient Problems: Problems Problem Status Onset Renal failure Acute
--- NOTE | 2018-04-19 17:17 | SOAPPROG ---
SOAP Progress Note Assessment/Plan: Assessment: 82 y/o F with a known h/o PCKD who recently moved to [place] this past fall with Stage IV/V CKD, CAD, COPD, HLD, HTN, DM, and macular degeneration admitted with uremic symptoms for initiation of dialysis. # ESRD- will now be declared ESRD --1st HD session on 04/17 evening 1.5hrs (200BF/300DF) --2nd HD session 04/18 --3rd HD session on 04/19, will give 1un PRBC with HD on 04/19 --Will need to work on outpatient dialysis placement starting on 04/20 (patient was in OR until late on 04/17). Patient hopes to dialyze at [facility] --dialysis vitamin --Tunneled HD catheter and LUE AVF placed by Dr. Alfredo on 04/17 # Anemia- --iron sat below goal at 17% *Transfusion with HD on 04/19 given Hgb of 6.5 *Will recheck CBC on 04/20, may need another unit *Will plan to recheck iron sat after transfusion, might need IVF iron as well to make sure iron stores are up before starting Epo # Hypertension- ok on current meds, continue # Metabolic acidosis-2/2 ESRD, improved with initiation of HD and dialysis on higher bicarb bath *D/c'ed sodium bicarb tablets # Hyperkalemia- K at goal # CKD-MBD --Phos 5.6 on 04/18, above goal but just starting HD --> improved to 3.3 without binder --CTM for now but will likely need phos binder in the future Subjective: 3rd HD session today with 1u PRBCs, tolerated well. She reports that she is overall feeling good today. Last night she had some cough and congestion. She was given a breathing treatment and an expectorant and symptoms have improved. Urine output less today. Objective: Vital Signs Temp Pulse Resp BP Pulse Ox 37.0 C 88 16 151/81 H 88 L 04/19/18 16:00 04/19/18 16:00 04/19/18 16:00 04/19/18 16:00 04/19/18 16:20 Laboratory Results 04/19/18 04:08 04/19/18 04:08 04/18/18 04/19/18 04/20/18 05:59 05:59 05:59 Intake Total 1450 2200 Output Total 631 300 475 Balance 819 1900 -475 General- awake, alert, well-appearing, NAD Eyes- anicteric sclera, no conjunctival injection HEENT- MMM, no gross oral lesions Neck- RIJ tunneled dialysis catheter in place Pulm- CTAB, no wheezes or rales, breathing comfortably on RA CV- NRRR, no g/m/r, 1+ LE edema (R>L) Abd- soft, non-tender, non-distended, +BS Extrem- new LUE AVF with good bruit and thrill with surrounding ecchymosis Psych- pleasant, answers questions appropriately ICD10 Worksheet Patient Problems: Problems Problem Status Onset Renal failure Acute
[2018-04-19] MEDS: ATORVASTATIN CALCIUM 10 MG TAB PO SCH (19:29)
[2018-04-19] MEDS: MELATONIN 3 MG TAB PO SCH (19:30)
[2018-04-19] MEDS: ASPIRIN 325 MG TAB PO SCH (19:31)
[2018-04-19] MEDS: RANITIDINE HCL 150 MG/10 ML UDCUP PO SCH (19:36)
--- NOTE | 2018-04-19 22:22 | GOP ---
DATE OF OPERATION: 04/17/2018 SURGEON: Tevin Alfredo MD PREOPERATIVE DIAGNOSIS: Chronic renal failure. POSTOPERATIVE DIAGNOSIS: Chronic renal failure. PROCEDURE PERFORMED: Right internal jugular vein Palindrome catheter with fluoroscopic guidance and ultrasound guidance. FINDINGS: GOOD POSITION AND FLOW DESCRIPTION OF PROCEDURE: Patient was taken to the operating room where she received satisfactory general endotracheal anesthesia by Dr. Thompson. She was placed in the supine position, prepped and draped in usual sterile fashion, and placed in Trendelenburg. Using ultrasound guidance, the internal jugular vein was cannulated. Eventually a guidewire was passed down into the right atrium. Palindrome catheter was tunneled up from a separate stab incision on the anterior chest wall, and gentle curve dilators were passed with the guidewire, and the dilator and introducer sheath were positioned, and the catheter was introduced in the right atrium. The introducer sheath was removed. Good backflow was achieved. The catheter was flushed with heparin saline and instilled with the appropriate amount of 5000 unit/cc heparin. It was secured to the skin with interrupted 3-0 Prolene sutures, and the entrance site was closed with 3-0 Prolene mattress sutures. Wounds were infiltrated with 0.5% Marcaine. She tolerated the procedure well and was taken to the recovery room in good condition. /[id number]/MODL MTDD
--- NOTE | 2018-04-19 22:47 | GOP ---
DATE OF OPERATION: 04/17/2018 SURGEON: Tevin Alfredo MD ANESTHESIOLOGIST: Nelly Tohmpson MD. PREOPERATIVE DIAGNOSIS: Chronic renal failure. POSTOPERATIVE DIAGNOSIS: Chronic renal failure. PROCEDURE PERFORMED: Ultrasound vein mapping of the left arm with a left brachiocephalic arteriovenous fistula. FINDINGS: The cephalic vein at the wrist was quite small. Cephalic vein at the antecubital space was over 3 mm. Regulatory Agency Director. Wesley DIAZ ESTIMATED BLOOD LOSS: Negligible. DESCRIPTION OF PROCEDURE: The patient was taken to the operating room. She received satisfactory general endotracheal anesthesia by Dr. Thompson. She was placed in supine position with the left arm outstretched on an arm board and prepped and draped in usual sterile fashion. Using ultrasound mapping, the veins were tested with the above-noted findings. A curvilinear incision was made in the antecubital space. Dissection extended down through the subcutaneous tissue, and the biceps aponeurosis and the brachial artery was dissected free and controlled with vessel loops. The cephalic vein was dissected free and dissected down into the proximal arm. The vein was freed up proximally and some tributaries were divided with hemoclips until the vein would reach over to the brachial artery. Patient was systemically heparinized at that point. After adequate circulation time, the brachial artery was occluded with vessel loops, and an end-to-side anastomosis was made, creating an 8 mm anastomosis and a brachiocephalic AV fistula. Flow was first established through the fistula and back down the hand. We maintained a good radial pulse. Hemostasis was assured. The wound was closed with 3-0 Vicryl for the subcutaneous tissue after infiltration of 0.5% Marcaine. Also some topical thrombin was placed in the cavity. The skin was then closed with a 4-0 Monocryl subcuticular suture. Patient was taken to the recovery room in good condition. COMPLICATIONS: There were no complications. /[id number]/MODL MTDD
[2018-04-20 04:41] LABS: PLATELET COUNT 91 10^3/uL (150-400)
[2018-04-20] MEDS: LEVOTHYROXINE 88 MCG TAB PO SCH (05:24)
[2018-04-20] MEDS: GUAIFENESIN/DM 10 ML UDCUP PO PRN ×2 (05:24→10:21)
[2018-04-20] MEDS: NEPHROVITE FOLIC ACID/VIT B&C 1 TAB PO SCH (08:09)
[2018-04-20] MEDS: ENALAPRIL MALEATE 20 MG TAB PO SCH (08:10)
[2018-04-20] MEDS: amLODIPine BESYLATE 5 MG TAB PO SCH (08:10)
[2018-04-20] MEDS: CARVEDILOL 25 MG TAB PO SCH ×2 (08:10→17:23)
[2018-04-20] MEDS: PRESERVISION AREDS2 FORMULA EYE VIT 1 EACH PO SCH ×2 (08:11→20:39)
--- NOTE | 2018-04-20 10:54 | SOAPPROG ---
SOAP Progress Note Assessment/Plan: Assessment: 82 y/o F s/p LUE AVF and neck catheter S: Denies pain at incision site. O: Alert Afebrile No increased WOB LUE: incision cdi, good thrill, surrounding ecchymosis stable Plan: Pt can go from surgery standpoint. Follow up with Dr. Alfredo in 10-14 days. 04/20/18 10:49 Objective: Vital Signs Temp Pulse Resp BP Pulse Ox 37.1 C 90 18 145/72 H 97 04/20/18 10:17 04/20/18 08:10 04/20/18 08:00 04/20/18 08:10 04/20/18 08:00 Laboratory Results 04/20/18 04:24 04/20/18 04:24 04/19/18 04/20/18 04/21/18 05:59 05:59 05:59 Intake Total 2200 300 Output Total 300 925 Balance 1900 -625 ICD10 Worksheet Patient Problems: Problems Problem Status Onset Renal failure Acute
--- NOTE | 2018-04-20 11:27 | SOAPPROG ---
BANG Progress Note Assessment/Plan: Assessment: 1. ESRD New to dialysis. S/P three consecutive runs. Holding today New fistula site looks excellent. Catheter ok. Arranging outpatient slot at [facility] ([phone]) Will determine next HD here based on outpatient dialysis time. 2. Anemia Stable after transfusion. I will give a dose of SORAIDA 3. Pulmonary Lung exam ok. She has a cough. She is currently on O2. If she is hypoxemic on weaning, I would check a CXR. Plan: 04/20/18 11:24 Subjective: Doing ok Objective: Vital Signs Temp Pulse Resp BP Pulse Ox 37.1 C 90 18 145/72 H 97 04/20/18 10:17 04/20/18 08:10 04/20/18 08:00 04/20/18 08:10 04/20/18 08:00 Laboratory Results 04/20/18 04:24 04/20/18 04:24 04/19/18 04/20/18 04/21/18 05:59 05:59 05:59 Intake Total 2200 300 Output Total 300 925 Balance 1900 -625 Physical Exam - Physical Exam General Appearance: no apparent distress Neck: other (Catheter tunnel site ok) Respiratory: lungs clear, decreased breath sounds Cardiac/Chest: regular rate, rhythm Extremities: pedal edema Neuro/Psych: oriented x 3 ICD10 Worksheet Patient Problems: Problems Problem Status Onset Renal failure Acute
[2018-04-20] MEDS ORDERED: EPOETIN ALFA 10,000 UNIT/ML VIAL SC SCH (11:30)
--- NOTE | 2018-04-20 12:43 | PDHOMEO2F ---
Home Oxygen Face to Face Home Orders: I certify that a physician or a nurse practitioner or physician's sales and marketing assistant has had a [id number] encounter with this patient on the date of this order due to the diagnosis listed, which relates to the primary reason the patient requires home oxygen. Alternative treatments have been tried, or considered, and deemed ineffective. It is anticipated that supplemental oxygen will result in improvement with treatment. Home oxygen qualifying diagnosis: chronic bronchitis SpO2 on room air (%): 84 Frequency of home oxygen needed: continuous Home oxygen liters per minute: 2 Home oxygen delivery device: nasal cannula Concentrator: Yes E-tanks for mobility and back up: Yes If ordering portable O2, is the patient mobile in the home?: Yes I certify that, based on these findings, the home oxygen is medically necessary for this patient for the following length of time. Length of time home oxygen needed: 3 months
--- NOTE | 2018-04-20 15:26 | ASMTCMCOM ---
CM Note CM Note Notes: Discharge plan pending outpatient dialysis chair placement. [facility] [place],[phone], this location does not have any available chairs until May. CM discussed with Dr. Magallon who recommended we contact [facility] . CM spoke with Chela Bradley, . CM faxed face sheet to [phone], Chela to email CM with requirements including hepatitis panel, chest x-ray. Chela will contact [facility] when financial approval is received and with scheduling for a dialysis chair, she shares the response may not be available until Friday due to the holiday closure. CM met with the patient, informed her we are sending information over though we may not receive a response until Friday. The patient states understanding. We discussed transportation, she could probably get transportation from her daughter and the facility she lives at has a bus but they currently do not have a limb driver. Patient positive for flu A. Likely discharge with home O2. CM to follow. D/C Plan: TBD, likely home independent when dialysis chair is scheduled. Date Signed: 04/20/2018 03:25 PM Electronically Signed By:Missy Morales
[2018-04-20] MEDS: OSELTAMIVIR 6 MG/ML UDSYR PO SCH (15:48)
--- NOTE | 2018-04-20 16:31 | HOSPPROG ---
Hospitalist Progress Note Assessment/Plan: 82yo F with history of CKD admitted at rec of exam proctor to initiate HD. 1. ESRD: New diagnosis. Due to PCKD. Tunneled dialysis line and LUE AV fistula placed by Dr Alfredo 04/17 - s/p 3 rounds of HD over the weekend - CM working on obtaining outpatient chair. Waiting on financial approval for place in [place], possibly will occur on Friday 2. Anemia: H/H stable after 1u PRBC transfusion. Chronically more consistent with renal disease - getting SORAIDA per renal today 3. Influenza A infection - started renally-dosed tamiflu, symptomatic meds 4. Thrombocytopenia: Worsening. Likely some consumption, possibly related to viral process. Monitor daily. Not bleeding 5. Hypertension: BP ok, continue current meds. 6. Metabolic acidosis: 2/2 renal disease. Improved with HD. Renal discontinued bicarb. 7. Hypothyroidism: Continue LT4 replacement 8. HLD: On statin 9. COPD: No exacerbation, not on inhalers at home 10. Cystic liver disease VTE ppx: SCDs with drop in h/h Diet: renal Code: full Dispo: remain inpatient until has plan for outpatient HD Subjective: Feeling crummy, trouble breathing, diagnosed with influenza. wondering about outpatient HD chair status. Objective: Vital Signs Temp Pulse Resp BP Pulse Ox 37.7 C 86 18 146/78 H 98 04/20/18 15:28 04/20/18 15:28 04/20/18 15:28 04/20/18 15:28 04/20/18 15:28 Microbiology 04/20/18 11:46 Respiratory Panel (PCR) - Final Nasal, Sinus - Swab Influenza Virus Type A 2009 H1 Laboratory Results 04/20/18 04:24 04/20/18 04:24 04/19/18 04/20/18 04/21/18 05:59 05:59 05:59 Intake Total 2200 300 150 Output Total 300 925 Balance 1900 -625 150 - Physical Exam Constitutional: no apparent distress, other (coughing) Eyes: PERRL, anicteric sclera, EOMI Ears, Nose, Mouth, Throat: moist mucous membranes, hearing normal, ears appear normal, no oral mucosal ulcers Cardiovascular: regular rate and rhythym, no murmur, rub, or gallop, No edema Respiratory: no respiratory distress, reduced air movement, rhonchi Gastrointestinal: normoactive bowel sounds, soft, non-tender abdomen, no palpable masses Genitourinary: no bladder fullness, no bladder tenderness, no renal bruits Skin: no rashes or abrasions, no fluctuance, no induration, other (right chest central line c/d/i, LUE AVF looking good) Musculoskeletal: full muscle strength, no muscle tenderness, normal joint ROM Neurologic: AAOx3, sensation intact bilaterally Psychiatric: interacting appropriately, not anxious, not encephalopathic, thought process linear ICD10 Worksheet Patient Problems: Problems Problem Status Onset Renal failure Acute
[2018-04-20] MEDS ORDERED: OSELTAMIVIR PHOSPHATE 75 MG CAP PO SCH (18:00)
[2018-04-20] MEDS: ASPIRIN 325 MG TAB PO SCH (20:39)
[2018-04-20] MEDS: ATORVASTATIN CALCIUM 10 MG TAB PO SCH (20:39)
[2018-04-20] MEDS: FAMOTIDINE 20 MG TAB PO SCH (20:39)
[2018-04-20] MEDS: MELATONIN 3 MG TAB PO SCH (20:39)
[2018-04-21] MEDS: LEVOTHYROXINE 88 MCG TAB PO SCH (07:08)
[2018-04-21] MEDS ORDERED: BENZONATATE 100 MG CAP PO PRN (08:04)
--- NOTE | 2018-04-21 08:06 | SOAPPROG ---
SOAP Progress Note Assessment/Plan: Assessment: #ESRD- new start this admit run again today and tomorrow working [facility] spot [facility]-- should have confirmation in am tomorrow new AVF placed this admit, using [facility] #Influenza A -on O2 -on tamiflu #Anemia CKD -on Epo and renal vitamin #MBD of CKD -phos ok #thrombocytopenia -will check HIT Ab and use citrate on HD for now until sure may be infection related as well I discussed with RN Lavern Quintanilla MD [facility] pager [phone] 04/21/18 08:09 Subjective: Has sore throat, cough. Denies sob, on O2 b NC. Influenza A positive. HD going ok so far- discussed outpt plan. Objective: Vital Signs Temp Pulse Resp BP Pulse Ox 36.9 C 94 22 H 137/70 H 97 04/21/18 04:07 04/21/18 04:07 04/21/18 04:07 04/21/18 04:07 04/21/18 04:07 Microbiology 04/20/18 11:46 Respiratory Panel (PCR) - Final Nasal, Sinus - Swab Influenza Virus Type A 2008 H1 Laboratory Results 04/21/18 04:36 04/21/18 04:36 04/20/18 04/21/18 04/22/18 05:59 05:59 05:59 Intake Total 300 350 Output Total 925 Balance -625 350 Physical Exam - Physical Exam General Appearance: alert, no apparent distress (on O2 by NC, not tachypneic) Neck: supple, other (RIJ TDC) Respiratory: rhonchi (bilat) Cardiac/Chest: regular rate, rhythm, other (no rub) Abdomen: normal bowel sounds, non-tender, soft Extremities: other (no edema) Neuro/Psych: alert, oriented x 3 ICD10 Worksheet Patient Problems: Problems Problem Status Onset Renal failure Acute
[2018-04-21] MEDS: ENALAPRIL MALEATE 20 MG TAB PO SCH (08:23)
[2018-04-21] MEDS: CARVEDILOL 25 MG TAB PO SCH ×2 (08:23→18:45)
[2018-04-21] MEDS: NEPHROVITE FOLIC ACID/VIT B&C 1 TAB PO SCH (08:23)
[2018-04-21] MEDS: PRESERVISION AREDS2 FORMULA EYE VIT 1 EACH PO SCH ×2 (08:24→20:41)
[2018-04-21] MEDS: amLODIPine BESYLATE 5 MG TAB PO SCH (08:24)
[2018-04-21] MEDS: OSELTAMIVIR 6 MG/ML UDSYR PO SCH ×2 (08:24→08:26)
--- NOTE | 2018-04-21 08:40 | HOSPPROG ---
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 1. ESRD: New diagnosis. Due to PCKD. Tunneled dialysis line and LUE AV fistula placed by Dr Alfredo 04/17 - HD today and tomorrow to get on MWF schedule - CM working on obtaining outpatient chair. Waiting on financial approval for place in [place], possibly will occur on Friday 2. Anemia: H/H stable after 1u PRBC transfusion. Chronically more consistent with renal disease - getting SORAIDA per renal 3. Influenza A infection - started renally-dosed tamiflu, symptomatic meds 4. Thrombocytopenia: Worsening. Consumption r/t flu vs HIT. No e/o thrombosis or bleeding - HIT antibodies pending - Discussed with renal, using citrate with HD - Not on prophylactic heparin products 5. Hypertension: BP ok, continue current meds. 6. Metabolic acidosis: 2/2 renal disease. Improved with HD. Renal discontinued bicarb. 7. Hypothyroidism: Continue LT4 replacement 8. HLD: On statin 9. COPD: No exacerbation, not on inhalers at home 10. Cystic liver disease VTE ppx: SCDs with drop in h/h Diet: renal Code: full Dispo: remain inpatient until has plan for outpatient HD, possibly dc tomorrow Subjective: Doing better, still with cough. No fevers. No bleeding or extremity swelling. Objective: Vital Signs Temp Pulse Resp BP Pulse Ox 36.9 C 94 22 H 137/70 H 97 04/21/18 04:07 04/21/18 08:23 04/21/18 04:07 04/21/18 08:24 04/21/18 04:07 Microbiology 04/20/18 11:46 Respiratory Panel (PCR) - Final Nasal, Sinus - Swab Influenza Virus Type A 2009 H1 Laboratory Results 04/21/18 04:36 04/21/18 04:36 04/20/18 04/21/18 04/22/18 05:59 05:59 05:59 Intake Total 300 350 Output Total 925 Balance -625 350 - Physical Exam Constitutional: no apparent distress Eyes: PERRL, anicteric sclera, EOMI Ears, Nose, Mouth, Throat: moist mucous membranes, hearing normal, ears appear normal, no oral mucosal ulcers Cardiovascular: regular rate and rhythym, no murmur, rub, or gallop, No edema Respiratory: reduced air movement, expiratory wheeze Gastrointestinal: normoactive bowel sounds, soft, non-tender abdomen, no palpable masses Genitourinary: no bladder fullness, no bladder tenderness, no renal bruits Skin: other (LUE AVF healing well) Musculoskeletal: full muscle strength, no muscle tenderness, normal joint ROM Neurologic: AAOx3, sensation intact bilaterally Psychiatric: interacting appropriately, not anxious, not encephalopathic, thought process linear ICD10 Worksheet Patient Problems: Problems Problem Status Onset Renal failure Acute
[2018-04-21] MEDS ORDERED: SODIUM CITRATE 4% 5 ML in SYRINGE 0 ML DIAL ONE (16:00)
[2018-04-21] MEDS: ATORVASTATIN CALCIUM 10 MG TAB PO SCH (20:41)
[2018-04-21] MEDS: ASPIRIN 325 MG TAB PO SCH (20:41)
[2018-04-21] MEDS: MELATONIN 3 MG TAB PO SCH (20:41)
[2018-04-21] MEDS: FAMOTIDINE 20 MG TAB PO SCH (20:41)
[2018-04-22 05:05] LABS: HEPATITIS B CORE AB IGM NEGATIVE (NEGATIVE)
[2018-04-22] MEDS: LEVOTHYROXINE 88 MCG TAB PO SCH (05:18)
[2018-04-22] MEDS: GUAIFENESIN/DM 10 ML UDCUP PO PRN ×3 (05:22→16:40)
[2018-04-22] MEDS ORDERED: NS 500 ML IV PRN (08:14)
[2018-04-22] MEDS ORDERED: SODIUM CITRATE 4% 5 ML in SYRINGE 0 ML DIAL ONE (08:15)
--- NOTE | 2018-04-22 10:01 | SOAPPROG ---
SOAP Progress Note Assessment/Plan: Assessment: 82-YEAR-OLD FEMALE WITH INCREASING AZOTEMIA BUT POTASSIUM IS OKAY SURGICAL RISKS AND OPTIONS FULLY DISCUSSED AND SHE WISHED TO PROCEED HEENT NONICTERIC WITHOUT BRUITS CHEST CLEAR COR REGULAR RHYTHM ABDOMEN SOFT EXTREMITIES FULL PULSES FULL RANGE OF MOTION Plan: IJ PALINDROME CATHETER/LEFT ARM AV FISTULA 04/17/18 10:04 04/22/18 10:00 Doing well status post initiation of dialysis/catheter working well Left upper extremity AV fistula of flowing excellently with no hand symptoms or problems Home today/follow-up as outpatient Objective: Vital Signs Temp Pulse Resp BP Pulse Ox 36.8 C 81 16 153/77 H 100 04/22/18 04:00 04/22/18 04:00 04/22/18 04:00 04/22/18 04:00 04/22/18 04:00 Laboratory Results 04/22/18 03:58 04/22/18 03:58 04/21/18 04/22/18 04/23/18 05:59 05:59 05:59 Intake Total 350 1290 Output Total 200 Balance 350 1090 ICD10 Worksheet Patient Problems: Problems Problem Status Onset Renal failure Acute
--- NOTE | 2018-04-22 11:23 | PDHOMEO2F ---
Home Oxygen Face to Face Home Orders: I certify that a physician or a nurse practitioner or physician's stylist assistant has had a [id number] encounter with this patient on the date of this order due to the diagnosis listed, which relates to the primary reason the patient requires home oxygen. Alternative treatments have been tried, or considered, and deemed ineffective. It is anticipated that supplemental oxygen will result in improvement with treatment. Home oxygen qualifying diagnosis: respiratory failure with hypoxis SpO2 on room air (%): 84 Frequency of home oxygen needed: continuous Home oxygen liters per minute: 2 Home oxygen delivery device: nasal cannula Concentrator: Yes E-tanks for mobility and back up: Yes If ordering portable O2, is the patient mobile in the home?: Yes I certify that, based on these findings, the home oxygen is medically necessary for this patient for the following length of time. Length of time home oxygen needed: 3 months
[2018-04-22] MEDS: amLODIPine BESYLATE 5 MG TAB PO SCH (11:57)
[2018-04-22] MEDS: ENALAPRIL MALEATE 20 MG TAB PO SCH (11:57)
[2018-04-22] MEDS: CARVEDILOL 25 MG TAB PO SCH (11:57)
[2018-04-22] MEDS: PRESERVISION AREDS2 FORMULA EYE VIT 1 EACH PO SCH (11:58)
--- NOTE | 2018-04-22 12:00 | PDDCSUM ---
Discharge Summary Discharge Summary: Date of Admission: 04/16/2018 Date of Discharge: 04/22/2018 Consultants: general surgery (Dr Alfredo), nephrology Studies/Procedures: 1. Discharge Diagnoses: 1. ESRD, new diagnosis, now on HD 2. Anemia 3. Influenza A infection with acute hypoxia, now resolved 4. Thrombocytopenia 5. Hypertension 6. Metabolic acidosis 2/2 renal disease 7. Hypothyroidism 8. COPD 9. Cystic liver disease Brief Hospital Course: 82yo F with history of CKD 2/2 PCKD admitted at recommendation of security researcher to initiate HD. Recently moved from [place] to [place] to be closer to family knowing that she'd be on HD soon. Dr Alfredo placed tunneled dialysis line and LUE AV fistula on 04/17 and she was initiated on HD, last dialyzed on day of discharge 04/22. She was anemic and required 1u PRBC this admission and EPO was initiated. An outpatient HD chair was established and she will begin HD on Monday 04/24. She will follow up with Dr Alfredo to monitor for maturation of fistula. She developed thrombocytopenia several days after admission. It was unclear if this was consumptive in setting of viral process vs HIT. HIT antibodies were pending at time of discharge. The nephrology team alerted her outpatient HD team to this and advised to not use heparin until HIT antibodies return. She also was found to have influenza A infection while hospitalized. She received renally-dosed tamiflu. Briefly required supplemental oxygen but this was weaned prior to discharging. Medications: Please refer to EMR for complete list. Her sodium bicarbonate and lasix were discontinued. I provided prescription for the followin. Tamiflu 30mg QD #2, 0 refills Follow Up Plan: 1. To initiate HD on Friday, 04/24 2. Repeat CBC at that time to monitor platelets 3. Follow up HIT antibodies. No heparin until this returns Physical Exam: Vitals reviewed, afebrile. Alert and oriented, RRR, lungs with improving rhonchi, no leg edema, abdomen soft and nt, R TDC c/d/i, LUE AV fistula appears great.
[2018-04-22] MEDS: NEPHROVITE FOLIC ACID/VIT B&C 1 TAB PO SCH (12:01)
[2018-04-22 12:02] VITALS: BP 124/67
[2018-04-22] MEDS: OSELTAMIVIR 6 MG/ML UDSYR PO SCH (12:04)
[2018-04-22] MEDS: IPRATROPIUM/ALBUTEROL 3 ML DEYVIAL IH PRN (12:15)
--- NOTE | 2018-04-22 13:36 | SOAPPROG ---
SOAP Progress Note Assessment/Plan: Assessment: ESRD, new, HD 4 days of last 5 Influenza-A on Tamiflu new AVF, developing tunneled RIJ HD cath, mildly problematic on HD today, got through treatment OK Anemia of CKD, on EPO Plan: hopefully home today needs Hep-C drawn prior to dismissal no heparin on HD until we know HIT is negative discussed the above with outpatient HD unit in [place] 04/22/18 13:37 Subjective: feels better today still some cough, no body aches HD cath persnickety with coughing on HD today, completed HD minus 20 min discussed with HD unit on [facility] in [place]. Has 1:30 appt MWF, needs to be there at 1:00 no cp, SOB improved appetite OK, enjoying a chicken caesar salad for lunch wants to go home Objective: Vital Signs Temp Pulse Resp BP Pulse Ox 36.8 C 71 16 124/67 H 83 L 04/22/18 11:42 04/22/18 12:18 04/22/18 12:18 04/22/18 11:57 04/22/18 12:18 Laboratory Results 04/22/18 03:58 04/22/18 03:58 04/21/18 04/22/18 04/23/18 05:59 05:59 05:59 Intake Total 350 1290 Output Total 200 Balance 350 1090 Physical Exam - Physical Exam General Appearance: alert Neck: normal inspection, other (reccent RIJ HD cath) Respiratory: rales, rhonchi, No wheezing, No pleural rub Cardiac/Chest: regular rate, rhythm, systolic murmur, No edema, No friction rub Abdomen: normal bowel sounds, non-tender, soft Extremities: No pedal edema Neuro/Psych: alert, normal mood/affect, oriented x 3 ICD10 Worksheet Patient Problems: Problems Problem Status Onset Renal failure Acute
--- NOTE | 2018-04-22 14:06 | ASMTCMCOM ---
CM Note CM Note Notes: Patient plan of care reviewed in am rounds. Tara Velazquez has applied for auth to dialyze patient as outpatient in [facility]. She has been medically cleared for discharge. She is to have a Hep C drawn prior to discharge. She will be given instructions on where to report for her dialysis on Friday. CM available should other needs arise. Plan: DC to home with oxygen and follow up at [facility] [place]. Date Signed: 04/22/2018 02:06 PM Electronically Signed By:Vijaya Jarrett RN
--- NOTE | 2018-04-22 14:50 | ASMTLACE ---
LACE Length of stay for Answers: 4-6 days current admission Acuity / Level of Answers: Yes Care: Did the patient have an inpatient admission? Comorbidities - select Answers: Coronary Artery Disease all that apply Diabetes (uncontrolled or controlled) Moderate or severe liver or renal disease Previous myocardial infarction Other Notes: HTN # of Emergency department Answers: 1-2 visits in the last 6 months Score: 17 Date Signed: 04/22/2018 02:49 PM Electronically Signed By:Vijaya Jarrett RN
--- NOTE | 2018-04-22 14:59 | ASMTCMCOM ---
CM Note CM Note Notes: Per [facility], labs, H&P and progress notes faxed. Reviewed with patient her time, date and location of dialysis. Date Signed: 04/22/2018 02:58 PM Electronically Signed By:Vijaya Jarrett RN
[2018-04-22 16:09] LABS: HEPATITIS C ANTIBODY TOTAL NEGATIVE (NEGATIVE)
== END 2018-04-22 17:31 | disposition home or self-care (01) | DRG 673 ==
LOC: F1N 19:35
PROVIDERS: ADMIT Family Medicine; ATTEND Family Medicine
PROC: 03180ZF Bypass Left Brachial Artery to Lower Arm Vein, Open Approach (ICD-10-PCS; principal; 2018-04-17 08:30)
PROC: 02H633Z Insertion of Infusion Device into Right Atrium, Percutaneous Approach (ICD-10-PCS; principal; 2018-04-17 08:30)
PROC: 5A1D70Z Performance of Urinary Filtration, Intermittent, Less than 6 Hours Per Day (ICD-10-PCS; 2018-04-17 08:30)
PROC: 30233N1 Transfusion of Nonautologous Red Blood Cells into Peripheral Vein, Percutaneous Approach (ICD-10-PCS; 2018-04-19)
DX: I12.0 Hypertensive chronic kidney disease with stage 5 chronic kidney disease or end stage renal disease (principal); N18.6 End stage renal disease; E87.2 Acidosis; Q44.6 Cystic disease of liver; J10.1 Influenza due to other identified influenza virus with other respiratory manifestations; R09.02 Hypoxemia; D69.6 Thrombocytopenia, unspecified; E03.9 Hypothyroidism, unspecified; J44.9 Chronic obstructive pulmonary disease, unspecified; I25.10 Atherosclerotic heart disease of native coronary artery without angina pectoris; D63.1 Anemia in chronic kidney disease; E11.9 Type 2 diabetes mellitus without complications; Z95.5 Presence of coronary angioplasty implant and graft
CPT/HCPCS: 86022-90; 86705-90; C1750; G0472; J0690; J0885; J1100; J1642; J1644; J2370; J2405; J2704; J2720; J3010; P9016